=== PATIENT | female | born 1945 | race Two or more races ===

== ENCOUNTER 2020-11-10 06:00 | Day surgery (SDC) | payer OTHER ==
[~2020-11-10 06:00] MED LIST: AMBIEN5 MG PO; GABAPENTIN300 M2 PO; LANTUS SOL100 UNIT/1; LIPITOR20 MG PO; PLETAL
== END 2020-11-10 10:45 | disposition home or self-care (01) ==
LOC: CIR.AMB 06:00 → O/R 06:00 → CIR.AMB 07:00
PROVIDERS: ATTEND Orthopaedic Surgery Hand Surgery
DX: G56.02 Carpal tunnel syndrome, left upper limb (principal); Z20.822 Contact with and (suspected) exposure to COVID-19

== ENCOUNTER 2021-02-23 07:08 | Day surgery (SDC) | payer OTHER ==
[~2021-02-23 07:08] MED LIST changes: +COZAAR25 MG PO; +PRILOSEC OTC20 MG PO
== END 2021-02-23 15:22 | disposition home or self-care (01) ==
LOC: CIR.AMB 07:08
PROVIDERS: ATTEND Orthopaedic Surgery Hand Surgery
DX: G56.01 Carpal tunnel syndrome, right upper limb (principal)

== ENCOUNTER 2021-05-04 06:44 | Day surgery (SDC) | payer OTHER | END 2021-05-04 17:00 | disposition home or self-care (01) | LOC: CIR.AMB 06:44 | PROVIDERS: ATTEND Orthopaedic Surgery Hand Surgery | DX: S62.632 Displaced fracture of distal phalanx of right middle finger (principal); Z20.822 Contact with and (suspected) exposure to COVID-19 ==